=== PATIENT | female | born 1965 | race Caucasian/White ===

== ENCOUNTER 2016-12-22 17:53 | Emergency (ER) | payer MEDICAID ==
[~2016-12-22] VITALS: Ht 137.2 cm; Wt 53.2 kg
[~2016-12-22 17:53] MED LIST: GLIM4TAB2 PO; INSU100I18 SC; METF10002 PO
[2016-12-22 18:39] LABS: PH, VENOUS 7.378 pH (7.320-7.420)
[2016-12-22 18:52] LABS: BLOOD UREA NITROGEN 18 mg/dL (7-18)
[2016-12-22 18:56] LABS: ASPARTATE AMINO TRANSFERASE 13 U/L (15-37)
[2016-12-22 19:53] VITALS: BP 122/77
== END 2016-12-22 20:27 | disposition home or self-care (01) ==
LOC: ED 20:21
DX: E11.65 Type 2 diabetes mellitus with hyperglycemia (principal); I10 Essential (primary) hypertension
CPT/HCPCS: 36415; 80053; 81003; 82010; 82803; 82962; 85025; 99284

== ENCOUNTER 2017-10-13 09:59 | Emergency (ER) | payer MEDICAID ==
[~2017-10-13] VITALS: Ht 139.7 cm; Wt 49.4 kg
[2017-10-13] MEDS ORDERED: CANA100T PO (10:27)
[2017-10-13] MEDS ORDERED: PHENAZOPYRIDINE 200 MG TABLET PO ONE (10:30)
[2017-10-13] MEDS ORDERED: PHENAZOPYRIDINE 200 MG TABLET ONE (10:34)
[2017-10-13 10:44] LABS: CULTURE INDICATED? YES; MICROSCOPIC INDICATED
[2017-10-13 11:20] VITALS: BP 127/74
== END 2017-10-13 11:22 | disposition home or self-care (01) ==
LOC: ED 10:43
DX: N30.00 Acute cystitis without hematuria (principal); E11.9 Type 2 diabetes mellitus without complications; I10 Essential (primary) hypertension
CPT/HCPCS: 81001; 87077; 87086; 87186; 99284

== ENCOUNTER 2018-06-07 14:40 | Emergency (ER) | payer MEDICAID ==
[~2018-06-07] VITALS: Ht 139.7 cm; Wt 51.9 kg
[~2018-06-07 14:40] MED LIST changes: +CANA100T PO
[2018-06-07] MEDS ORDERED: METR70GE14 VG (15:13)
[2018-06-07] MEDS ORDERED: SIMV40TA3 PO (15:13)
[2018-06-07] MEDS ORDERED: INSU100I34 SQ-INSULIN (15:13)
[2018-06-07] MEDS ORDERED: LINA5TAB PO (15:13)
[2018-06-07] MEDS ORDERED: MICO100S VG (15:13)
[2018-06-07] MEDS ORDERED: CETI10TA18 PO (15:13)
[2018-06-07 15:33] LABS: BASOPHILS # (AUTO) 0.07 x10^3/uL (0-0.1); BASOPHILS % (AUTO) 1 % (0-1); EOSINOPHILS # (AUTO) 0.21 x10^3/uL (0-0.4); EOSINOPHILS % (AUTO) 2 % (1-7); LYMPHOCYTES # (AUTO) 2.86 x10^3/uL (1-3.4); LYMPHOCYTES % (AUTO) 32 % (22-44); MD NO; MEAN CORPUSCULAR HEMOGLOBIN 26.5 pg (27.0-34.8); MEAN CORPUSCULAR HGB CONC 33.1 g/dL (32.4-35.8); MEAN CORPUSCULAR VOLUME 80.1 fL (80-100); MONOCYTES # (AUTO) 0.38 x10^3/uL (0.2-0.8); MONOCYTES % (AUTO) 4 % (2-9); NEUTROPHILS # (AUTO) 5.53 x10^3/uL (1.8-6.8); NEUTROPHILS % (AUTO) 61 % (42-75); PLATELET COUNT 303 x10^3/uL (130-400); RED BLOOD COUNT 5.03 x10^6/uL (3.82-5.3); RED CELL DISTRIBUTION WIDTH 14.3 % (9.6-15.2)
[2018-06-07 15:42] LABS: ALANINE AMINOTRANSFERASE 30 U/L (12-78); ALBUMIN 3.7 g/dL (3.4-5.0); ANION GAP 7 mmol/L (5-15); CALCIUM 8.6 mg/dL (8.5-10.1); CHLORIDE 107 mmol/L (98-107); CREATININE 0.71 mg/dL (0.55-1.02)
[2018-06-07 15:44] LABS: ALKALINE PHOSPHATASE 85 U/L (45-117); BILIRUBIN,TOTAL 0.2 mg/dL (0.2-1.0); TOTAL PROTEIN 7.2 g/dL (6.4-8.2)
[2018-06-07 16:35] VITALS: BP 151/87
== END 2018-06-07 20:07 | disposition home or self-care (01) ==
LOC: ED 16:41
DX: E11.65 Type 2 diabetes mellitus with hyperglycemia (principal)
CPT/HCPCS: 36415; 80053; 85025; 99283; 99284